=== PATIENT | male | born 1960 | race Caucasian/White ===

== ENCOUNTER 2016-05-30 12:05 | Inpatient (IN) | payer SELFPAY ==
--- NOTE | ~2016-05-30 | EGD ---
EGD REPORT [facility] [address] [address] NAME: HYACINTH WATSON : [birth year] STATUS : ADM IN PAT#: [id number] AGE: 56 ADM/REG DATE : 05/30/16 MR#: [id number] REPORT SERV DATE: 05/31/16 DICTATED BY: MARGARETTE ALEGRIA DATE: 05/31/16 REPORT STATUS : Draft [facility]ANSCRIBED [facility]: [facility] DATE: 05/31/16 Endoscopy Center Patient Name: Hyacinth Watson Date of : 1960 Attending MD: MARGARETTE ALEGRIA MD Procedure Date No Time: 05/31/2016 Procedure: Colonoscopy Indications: Heme positive stool, Rectal bleeding Referring MD: LISANDRO ANDINO MD Medicines: Propofol per Anesthesia Complications: No immediate complications. Procedure: After I obtained informed consent, the scope was passed under direct vision. Throughout the procedure, the patient's blood pressure, pulse, and oxygen saturations were monitored continuously. The CF [id number] was introduced through the anus and advanced to the terminal ileum. The colonoscopy was performed without difficulty. The patient tolerated the procedure well. The quality of the bowel preparation was good. Findings: The perianal and digital rectal examinations were normal. The terminal ileum appeared normal. The colon (entire examined portion) appeared normal. A sessile polyp was found in the sigmoid colon. The polyp was 2 mm in size. The polyp was removed with a cold biopsy forceps. Resection and retrieval were complete. Three sessile polyps were found in the rectum. The polyps were 1 to 2 mm in size. These polyps were removed with a cold biopsy forceps. Resection and retrieval were complete. A sessile polyp was found in the rectum. The polyp was 6 mm in size. The polyp was removed with a hot snare. Resection and retrieval were complete. A sessile polyp was found in the rectum. The polyp was 3 mm in size. The polyp was removed with a cold snare. Resection and retrieval were complete. Non-bleeding internal hemorrhoids were found during retroflexion and were severe, large and Grade I (internal hemorrhoids that do not prolapse). Impression: - The examined portion of the ileum was normal. - The entire examined colon is normal. - One 2 mm polyp in the sigmoid colon. Resected and retrieved. - Three 1 to 2 mm polyps in the rectum. Resected and EGD REPORT [address] [place]. [address] NAME: HYACINTH WATSON : [birth year] STATUS : ADM IN [facility]#: [id number] AGE: 56 ADM/REG DATE : 05/30/16 MR#: [id number] REPORT SERV DATE: 05/31/16 DICTATED BY: MARGARETTE ALEGRIA DATE: 05/31/16 REPORT STATUS : Draft TRANSCRIBED BY: [employer] DATE: 05/31/16 retrieved. - One 6 mm polyp in the rectum. Resected and retrieved. - One 3 mm polyp in the rectum. Resected and retrieved. - Non-bleeding internal hemorrhoids. Recommendation: - Await pathology results. - Return to previous diet. - Repeat colonoscopy in 3 - 5 years for surveillance based on pathology results. - [facility]. Procedure Code(s): --- Professional --- 72397, Colonoscopy, flexible, proximal to splenic flexure; with removal of tumor(s), polyp(s), or other lesion(s) by snare technique 32147, 59, Colonoscopy, flexible, proximal to splenic flexure; with biopsy, single or multiple Diagnosis Code(s): --- Professional --- K64.0, First degree hemorrhoids K62.1, Rectal polyp D12.5, Benign neoplasm of sigmoid colon R19.5, Other fecal abnormalities K62.5, Hemorrhage of anus and rectum CPT copyright 2013 [employer]. All rights reserved. The codes documented in this report are preliminary and upon presser all around review may be revised to meet current compliance requirements. Margarette Alegria MD MARGARETTE ALEGRIA MD 05/31/2016 2:42 PM This report has been signed electronically. Number of Addenda: 0 Note Initiated On: 05/31/2016 1:42 PM Scope Withdrawal Time 0 hours 21 minutes 2 seconds [id number] [id number]
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
--- NOTE | ~2016-05-30 | DS ---
Discharge Summary [facility] [address] [place]. [address] NAME: HYACINTH LAFLEUR : 62 STATUS : DIS IN PAT#: [id number] AGE: 56 ADM/REG DATE : 05/30/16 MR#: [id number] REPORT SERV DATE: 06/01/16 DICTATED BY: MARGARETTE DHILLON DATE: 05/31/16 REPORT STATUS : Draft TRANSCRIBED BY: MODL DATE: 05/31/16 ADMISSION DATE: 05/30/2016 DISCHARGE DATE: 05/31/2016 FINAL DIAGNOSES: 1. Esophagitis, gastritis, and duodenitis. 2. Sigmoid and rectal polyps resected. 3. Chronic obstructive pulmonary disease. 4. Tobacco abuse. 5. Positive alcohol use. 6. Phimosis. DIAGNOSTIC EXAMS: CAT scan of the chest without contrast showing COPD. No lung masses or significant lung infiltrates. No adenopathy. Cyst in the anterior mediastinum that measures 2.2 x 1.8 cm. The nodule measured 1.7 x 1.5 cm in 2006. This finding has a benign appearance and is likely related to the thymus gland. HOSPITAL COURSE: Please refer to the H and P done by Dr. Lorenzana dated on 05/30/2016. Briefly, this is a 56-year-old male who comes in for melena and hematochezia. About nine weeks ago, the patient started having intermittent bright red blood per rectum and epigastric pain. Three weeks ago, he started having some melena and occasional diarrhea. The patient admits to taking Goody's Powder. The patient went to his PCP and was referred to be admitted. The patient got a GI consultation where an EGD was done, which showed nonsevere reflux esophagitis which was biopsied,The esophageal mucosal changes suspicious for short-segment Arriaga's. He has hiatal hernia, gastritis, duodenitis. A colonoscopy was done which showed a normal ileum and colon. One polyp in the sigmoid colon resected and three polyps in the rectum that is resected. The patient did not have any active bleed, did not have any bleeding while in the hospital and the H and H remained stable. The patient got clearance from GI to be discharged as long as he tolerates a diet, and he wants to go home today. So, once he is able to eat, we will be discharging him with the above diagnosis. He will be on Prilosec 20 mg OTC before breakfast and before supper, and he was warned not to take any more aspirin, Goody's Powder or NSAID and Tylenol would be best for him. He will need to follow up with his PCP, Dr. Jonathan Alejandro, in one to two weeks and in three months' time with Dr. Butts. The pathology of all the biopsies will be followed up as outpatient by the PCP and the GI. This has been explained to the patient at length. TOTAL TIME SPENT: Today, an hour. ANEESH/MANNY Margarette Dhillon M.D. / [id number] Discharge Summary [address] [address] NAME: HYACINTH LAFLEUR : 62 STATUS : DIS IN PAT#: [id number] AGE: 56 ADM/REG DATE : 05/30/16 MR#: [id number] REPORT SERV DATE: 06/01/16 DICTATED BY: MARGARETTE DHILLON. DATE: 05/31/16 REPORT STATUS : Draft TRANSCRIBED BY: MANNY DATE: 05/31/16 CC: Berenice Armendariz D.O.
--- NOTE | ~2016-05-30 | EGD ---
EGD REPORT [facility] [address] [address] NAME: HYACINTH WATSON : 62 STATUS : ADM IN PAT#: [id number] AGE: 56 ADM/REG DATE : 05/30/16 MR#: [id number] REPORT SERV DATE: 05/31/16 DICTATED BY: MARGARETTE ALEGRIA DATE: 05/31/16 REPORT STATUS : Draft [facility]ANS[facility]ED [facility]: [facility] DATE: 05/31/16 Endoscopy Center Patient Name: Hyacinth Watson Date of : 1960 Attending MD: MARGARETTE ALEGRIA MD Procedure Date No Time: 05/31/2016 Procedure: Upper GI endoscopy Indications: Epigastric abdominal pain, Abdominal pain in the left upper quadrant, Heartburn, Heme positive stool, Melena Referring MD: LISANDRO ANDINO MD Medicines: Propofol per Anesthesia Complications: No immediate complications. Procedure: After obtaining informed consent, the endoscope was passed under direct vision. Throughout the procedure, the patient's blood pressure, pulse, and oxygen saturations were monitored continuously. The GIF [id number] was introduced through the mouth, and advanced to the third part of duodenum. The upper GI endoscopy was accomplished without difficulty. The patient tolerated the procedure well. Findings: Non-severe esophagitis with no bleeding was found in the entire esophagus. Biopsies were taken with a cold forceps for histology. There were esophageal mucosal changes suspicious for short-segment Arriaga's esophagus present in the lower third of the esophagus. The maximum longitudinal extent of these mucosal changes was 2 cm in length. Mucosa was biopsied with a cold forceps for histology in a targeted manner and in 4 quadrants at intervals of 1 cm in the lower third of the esophagus. One specimen bottle was sent to pathology. A medium-sized hiatus hernia was present. as seen on retroflexion Diffuse mild inflammation characterized by congestion (edema) and erythema was found in the entire examined stomach. Biopsies were taken with a cold forceps for Helicobacter pylori testing. Localized moderate inflammation characterized by congestion (edema), erosions and erythema was found in the duodenal bulb. Biopsies were taken with a cold forceps for evaluation of celiac disease. And giardia, whipple's disease, and enteritis The 2nd part of the duodenum and 3rd part of the duodenum were normal. Biopsies were taken with a cold forceps for evaluation of celiac disease. And giardia, whipple's disease, and enteritis Impression: - Non-severe reflux esophagitis. Biopsied. - Esophageal mucosal changes suspicious for short-segment Arriaga's esophagus. Biopsied. EGD REPORT [address] [address] NAME: HYACINTH WATSON : 62 STATUS : ADM IN [facility]#: [id number] AGE: 56 ADM/REG DATE : 05/30/16 MR#: [id number] REPORT SERV DATE: 05/31/16 DICTATED BY: MARGARETTE ALEGRIA DATE: 05/31/16 REPORT STATUS : Draft TRANSCRIBED BY: [employer] DATE: 05/31/16 - Hiatus hernia. - Gastritis. Biopsied. - Duodenitis. Biopsied. - Normal 2nd part of the duodenum and 3rd part of the duodenum. Biopsied. Recommendation: - Await pathology results. - Use Prilosec (omeprazole) 20 mg PO BID for 1 month. - take 30-60 minutes before breakfast and supper - Then - Use Prilosec OTC 20 mg PO daily. - take 30-60 minutes before breakfast - Repeat the upper endoscopy in 1 year for surveillance based on pathology results. - [facility]. Procedure Code(s): --- Professional --- 08294, Esophagogastroduodenoscopy, flexible, transoral; with biopsy, single or multiple Diagnosis Code(s): --- Professional --- K21.0, Gastro-esophageal reflux disease with esophagitis K22.9, Disease of esophagus, unspecified K44.9, Diaphragmatic hernia without obstruction or gangrene K29.70, Gastritis, unspecified, without bleeding K29.80, Duodenitis without bleeding R10.13, Epigastric pain R10.12, Left upper quadrant pain R12, Heartburn R19.5, Other fecal abnormalities K92.1, Melena CPT copyright 2013 [employer]. All rights reserved. The codes documented in this report are preliminary and upon electronics technician review may be revised to meet current compliance requirements. Margarette Alegria MD MARGARETTE ALEGRIA MD 05/31/2016 2:42 PM This report has been signed electronically. Number of Addenda: 0 Note Initiated On: 05/31/2016 1:15 PM EGD REPORT [facility] [address] [address] NAME: HYACINTH WATSON : 62 STATUS : ADM IN [facility]#: [id number] AGE: 56 ADM/REG DATE : 05/30/16 MR#: [id number] REPORT SERV DATE: 05/31/16 DICTATED BY: MARGARETTE ALEGRIA DATE: 05/31/16 REPORT STATUS : Draft TRANSCRIBED BY: [employer] DATE: 05/31/16 Scope Withdrawal Time 0 hours 0 minutes 0 seconds [address] [id number]
[~2016-05-30 12:05] MED LIST: *DENIES
[2016-05-30 14:37] LABS: BASOPHILS 0.8 %; BASOPHILS ABSOLUTE 0.07 10/3/uL (0.0-0.16); EOSINOPHILS 0.3 %; EOSINOPHILS ABSOLUTE 0.03 10/3/uL (0.0-0.53); HEMATOCRIT 49.1 % (40.0-51.0); HEMOGLOBIN 16.7 g/dL (13.6-17.8); IMMATURE GRANULOCYTES 0.1 %; IMMATURE GRANULOCYTES ABSOLUTE 0.01 10/3/uL (0.0-0.11); LYMPHOCYTES 24.6 %; LYMPHOCYTES ABSOLUTE 2.19 10/3/uL (0.67-4.30); MEAN CORPUSCULAR HEMOGLOB 30.9 pg (26.0-34.0); MEAN CORPUSCULAR VOLUME 90.9 fL (80-100); MONOCYTES 6.1 %; MONOCYTES ABSOLUTE 0.54 10/3/uL (0.21-1.20); NEUTROPHILS 68.1 %; NEUTROPHILS ABSOLUTE 6.06 10/3/uL (2.02-8.40); PLATELET COUNT 261 10/3/uL (150-400); RBC DISTRIBUTION WIDTH 13.1 % (12.0-16.0)
[2016-05-30 14:39] LABS: MANUAL DIFF NO %; WHITE BLOOD CELLS 8.9 10/3/uL (4.5-10.5)
[2016-05-30 14:44] LABS: INTERNATIONAL NORMAL RATI 0.9 UNITS (-); PARTIAL THROMBO TIME 34.7 SEC (22.5-37.2); PROTIME (NOT ORD) 12.5 SEC (12.0-14.5)
[2016-05-30 14:54] LABS: A/G RATIO 1.1 (0.7-1.9); ALBUMIN 4.1 G/DL (3.5-5.0); ALKALINE PHOSPHATASE 69 U/L (45-117); BUN (BLOOD UREA NITROGEN) 17 MG/DL (6-23); CALCIUM, SERUM 9.2 MG/DL (8.5-10.4); CHLORIDE, SERUM 105 MMOL/L (96-112); CO2 (CARBON DIOXIDE) 25 MMOL/L (24-34); GFR AFRICAN AMERICAN 117 ML/MIN (>=60); GFR NON AFRICAN AMERICAN 101 ML/MIN (>=60); GLOBULIN 3.9 G/DL (2.5-4.1); GLUCOSE, SERUM 73 MG/DL (60-99); POTASSIUM, SERUM 4.3 MMOL/L (3.5-5.3); SGOT(AST) 16 U/L (5-40); SGPT(ALT) 32 U/L (5-65); SODIUM, SERUM 139 MMOL/L (135-148); TOTAL BILIRUBIN 0.7 MG/DL (0-1.2); TROPONIN I <0.02 NG/ML (<0.05)
[2016-05-30 20:57] LABS: HEMATOCRIT 47.4 % (40.0-51.0); HEMOGLOBIN 16.1 g/dL (13.6-17.8)
[2016-05-31 06:08] LABS: BASOPHILS ABSOLUTE 0.06 10/3/uL (0.0-0.16); EOSINOPHILS 1.3 %; EOSINOPHILS ABSOLUTE 0.08 10/3/uL (0.0-0.53); HEMATOCRIT 46.8 % (40.0-51.0); HEMOGLOBIN 15.9 g/dL (13.6-17.8); IMMATURE GRANULOCYTES 0.2 %; IMMATURE GRANULOCYTES ABSOLUTE 0.01 10/3/uL (0.0-0.11); LYMPHOCYTES 38.7 %; LYMPHOCYTES ABSOLUTE 2.31 10/3/uL (0.67-4.30); MANUAL DIFF NO %; MEAN CORPUSCULAR HEMOGLOB 30.8 pg (26.0-34.0); MEAN CORPUSCULAR VOLUME 90.7 fL (80-100); MEAN PLATELET VOLUME 9.1 fL (9.2-13.0); MONOCYTES 8.4 %; NEUTROPHILS 50.4 %; NEUTROPHILS ABSOLUTE 3.01 10/3/uL (2.02-8.40); PLATELET COUNT 245 10/3/uL (150-400); RBC DISTRIBUTION WIDTH 12.9 % (12.0-16.0); RED CELL COUNT 5.16 10/6/uL (4.7-6.1)
[2016-05-31 06:20] LABS: CALCIUM, SERUM 9.1 MG/DL (8.5-10.4); CHLORIDE, SERUM 106 MMOL/L (96-112); CREATININE 0.76 MG/DL (0.70-1.30); GFR AFRICAN AMERICAN 119 ML/MIN (>=60); GFR NON AFRICAN AMERICAN 103 ML/MIN (>=60); GLUCOSE, SERUM 84 MG/DL (60-99); SODIUM, SERUM 140 MMOL/L (135-148)
[2016-05-31 06:22] LABS: BUN (BLOOD UREA NITROGEN) 11 MG/DL (6-23); CO2 (CARBON DIOXIDE) 24 MMOL/L (24-34)
[2016-05-31 09:21] LABS: HEMATOCRIT 47.3 % (40.0-51.0); HEMOGLOBIN 16.2 g/dL (13.6-17.8)
[2016-05-31] MEDS ORDERED: PRILO PO (16:58)
== END 2016-05-31 18:03 | disposition home or self-care (01) | DRG 378 ==
LOC: 2SO 12:05
PROVIDERS: Hospitalist; Internal Medicine Gastroenterology
PROC: 0DB38ZX Excision of Lower Esophagus, Via Natural or Artificial Opening Endoscopic, Diagnostic (ICD-10-PCS; 2016-05-31)
PROC: 0DBN8ZX Excision of Sigmoid Colon, Via Natural or Artificial Opening Endoscopic, Diagnostic (ICD-10-PCS; 2016-05-31)
PROC: 0DBP8ZX Excision of Rectum, Via Natural or Artificial Opening Endoscopic, Diagnostic (ICD-10-PCS; 2016-05-31)
PROC: 0DB58ZX Excision of Esophagus, Via Natural or Artificial Opening Endoscopic, Diagnostic (ICD-10-PCS; principal; 2016-05-31 13:28)
PROC: 0DB98ZX Excision of Duodenum, Via Natural or Artificial Opening Endoscopic, Diagnostic (ICD-10-PCS; 2016-05-31 13:28)
PROC: 0DB68ZX Excision of Stomach, Via Natural or Artificial Opening Endoscopic, Diagnostic (ICD-10-PCS; 2016-05-31 13:28)
DX: K92.2 Gastrointestinal hemorrhage, unspecified (principal); M48.54XA Collapsed vertebra, not elsewhere classified, thoracic region, initial encounter for fracture; E32.8 Other diseases of thymus; J44.9 Chronic obstructive pulmonary disease, unspecified; F17.210 Nicotine dependence, cigarettes, uncomplicated; F12.90 Cannabis use, unspecified, uncomplicated; K21.0 Gastro-esophageal reflux disease with esophagitis; K22.9 Disease of esophagus, unspecified; K44.9 Diaphragmatic hernia without obstruction or gangrene; K29.70 Gastritis, unspecified, without bleeding; K29.80 Duodenitis without bleeding; K64.0 First degree hemorrhoids; K62.1 Rectal polyp; D12.5 Benign neoplasm of sigmoid colon; K22.70 Barrett's esophagus without dysplasia
CPT/HCPCS: 36415; 71250; 80048; 80053; 84484; 85014; 85018; 85025; 85610; 85730; 86850; 86900; 86901; 88305; 93005; A9270-GY